=== PATIENT | female | born 1975 | race Caucasian/White ===

== ENCOUNTER → 2017-09-11 | Outpatient (CLI) | payer BC ==
[~2017-09-11] MED LIST: PRENTAB26 PO
--- NOTE | 2017-09-11 16:02 | MAMMOGRAPHY REPORT ---
BILATERAL DIGITAL DIAGNOSTIC MAMMOGRAM TOMOSYNTHESIS WITH CAD AND TARGETED BILATERAL ULTRASOUND: 08/30 CLINICAL HISTORY: 42-year-old woman presents with a history of bilateral spontaneous nipple discharge which she noticed on 09/01/2017, after running a half marathon. The discharge from the left breast is grayish in color, whitish from the right breast. Increased amount produced from the left breast, has been continuously occurring since she first noticed it. No palpable lumps, skin erythema. Famil y history of breast cancer = paternal grandmother and first cousin. TECHNIQUE: Bilateral breast tomosynthesis in addition to standard 2D mammography was performed. Curre nt study was also evaluated with a Computer Aided Detection (CAD) system. COMPARISON: No prior exams were available for comparison. BREAST COMPOSITION: There are scattered areas of fibroglandular density in both breasts. FINDINGS: No obvious masses, focal areas of distortion, asymmetries or suspicious microcalcification s are seen in the breasts. No focal skin thickening or nipple retraction. In particular, the subare olar spot magnification views fail to demonstrate any suspicious microcalcifications in the subareola r/retroareolar breasts. Targeted ultrasound was performed in the periareolar and retroareolar aspect of each breast. In the 2:00 periareolar left breast, there is a lobulated mixed anechoic and isoechoic solid and cystic mass with internal vascularity demonstrated. A tubular hypoechoic structure extends from this mass to th e nipple, suggesting it represents an intraductal mass, possibly a papilloma. It measures 7.1 x 5.1 x 11.0 mm and is indeterminate. This could represent a papilloma and may be the cause of the patient 's nipple discharge. Definitive characterization with an ultrasound-guided core needle biopsy is rec ommended. No other discrete solid or cystic mass or intraductal masses seen throughout the remainder of the lef t breast on targeted ultrasound, or throughout the right breast on targeted ultrasound. IMPRESSION: ACR BI-RADS CATEGORY 4: SUSPICIOUS, TARGETED ULTRASOUND ACR BI-RADS CATEGORY 4: SUSPICIO US 1. Ultrasound guided core biopsy is recommended for a mixed solid and cystic 11 mm mass with interna l vascularity associated with a duct in the 2:00 periareolar left breast, as this may explain the pat ient's nipple discharge. 2. No mammographic or sonographic mass, evidence of malignancy or possible cause for right breast ni pple discharge and continued clinical monitoring is recommended. These results and recommendations were discussed with the patient at the time of the exam. She tenta tively scheduled a left breast biopsy prior to leaving our department. Approximately 10% of breast cancers are not detected with mammography. A negative mammographic report should not delay biopsy if a clinically suggestive mass is present. Monse Gunter M.D. ay/:09/11/2017 09:11:23 Bi Analyst: Kasandra QUINTANILLA(Lucretia)(M), [facility] letter sent: Abnormal 4/5 BI-RADS Code: ACR BI-RADS Category 4: Suspicious Ultrasound BI-RADS: ACR BI-RADS Category 4: Suspici ous
== END | disposition home or self-care (01) ==
LOC: C.MAMM 08:01
PROVIDERS: ATTEND Obstetrics & Gynecology
DX: N64.52 Nipple discharge (principal); N63.20 Unspecified lump in the left breast, unspecified quadrant

== ENCOUNTER → 2017-09-18 | Outpatient (CLI) | payer BC ==
--- NOTE | 2017-09-18 09:59 | Discharge Instructions ---
Discharge Instructions Procedure Procedure Date: Sep 18, 2017. Reason for visit: Left Mass. Discharge Discharge Date: Sep 18, 2017. Discharge Diagnosis: post left breast ultrasound guided core biopsy 2:00 axis Instructions Activity Recommendations: Additional Limitations (see below) Return to School/Work: no limitations Recommended Home Diet: No Limitations Provider Instructions: ACTIVITY RECOMMENDATIONS: * No lifting, pushing, pulling or exercising the affected side for three days. RETURN TO SCHOOL/WORK: * You may return to work/school after the procedure, but do not perform any strenuous activities for 24 to 48 hours. MEDICATIONS: * Tylenol (two 325 mg) every four to six hours if needed for mild pain (if not allergic to Tylenol). DIET: * Resume previous diet. SPECIAL CARE INSTRUCTIONS: * Keep biopsy site dry for 24 hours. May shower after 24 hours, but do not soak (bathe) incision. * May remove Tegaderm (plastic patch) tomorrow AFTER showering. * Leave the steri-strips on for one week. Allow the steri-strips to fall off by themselves. If not off after one week, you may remove them. You may place a Bandaid crosswise over the strips, if desired. * Apply ice 10 minutes on and 10 minutes off as needed. * Wear a bra at bedtime to sleep more comfortably for 2-3 days. * Your referring physician should have the results after approximately 5 to 7 business days. * Call for unusual bleeding, fever, drainage, etc or if you have any questions call [phone] during normal business hours or after hours call Dr Gunter, . FOLLOW UP VISIT: Follow-up with Referring Physician as scheduled. Allergies Coded Allergies: Sulfa Drugs (Verified Allergy, Unknown, HIVES, 01/14/17) [facility] [place] Recommendations: Call your doctor if: * Temperature above 101 degrees * Pain not relieved by pain medicine ordered * There is increased drainage or redness from any incision * You have any unanswered questions or concerns. Your Doctors Instructions noted above were prepared by provider Monse Gunter. Patient Signature Section: Patient Instructions Signature Page Keeley Lama Patient (or Guardian) Signature/Date: I have read and understand the instructions given to me by my caregivers. Caregiver/RN/Doctor Signature/Date: The above-named patient and/or guardian has received patient instructions on this date. + Original Patient Signature Page (only) stays with chart. Please make copy for patient.
--- NOTE | 2017-09-18 14:09 | MAMMOGRAPHY REPORT ---
ULTRASOUND GUIDED BIOPSY LEFT BREAST: 09/18/2017 CLINICAL HISTORY: Indeterminate mixed solid and cystic possible intraductal 11 mm mass in the 2:00 le ft breast in the setting of spontaneous greyish left nipple discharge. Patient presents for ultrasou nd-guided core needle biopsy. COMPARISON: Comparison is made to exams dated: 09/11/2017 mammogram and 09/11/2017 ultrasound - [facility]. PATIENT CONSENT: The procedure, risks and benefits were discussed with the patient and informed conse nt was obtained both verbally and in writing. Specific risks to this procedure include: bleeding, in fection, puncture of adjacent structure, nontarget biopsy, sampling error, pain, metal allergy and me dication reaction. PROCEDURE DESCRIPTION: A time out was performed and the left breast was agreed as the site of biopsy. The skin was prepped and draped in the usual sterile fashion. The microlobulated mixed solid and cys tic mass in the 2:00 breast was chosen as the target for biopsy. Subcutaneous and intraparenchymal 1% buffered lidocaine, with and without epinephrine, was administered as local anesthesia. A skin incis ion was made. Through the incision, 3 samples were taken with a 14 gauge Achieve biopsy device. A ri bbon shaped metallic marker was placed at the biopsy site. Hemostasis was achieved after manual compr ession. The patient tolerated the procedure well and there was no immediate complication. The sample s were sent to the pathology department in an appropriately labeled container. Post procedure left CC and ML tomosynthesis images were obtained. A new ribbon-shaped biopsy marker clip and no significant hematoma is seen in the 2:00 middle to anterior left breast, at the site of t he biopsied mixed solid and cystic mass identified on ultrasound. IMPRESSION: ULTRASOUND GUIDED BIOPSY Status post ultrasound-guided core biopsy of a mixed solid and cystic, possible intraductal 11 mm mas s in the 2:00 left breast, with biopsy marker placed at the site. The patient will receive notification of the biopsy results from her referring physician. Monse Gunter M.D. ay/:09/18/2017 10:48:14 Autocad Designer: Barbara Vallejo, [facility]
--- NOTE | 2017-09-18 14:13 | MAMMOGRAPHY REPORT ---
UNILATERAL LEFT DIGITAL DIAGNOSTIC MAMMOGRAM TOMOSYNTHESIS: 09/18/2017 CLINICAL HISTORY: Status post ultrasound-guided core biopsy of a mixed solid and cystic possible intr aductal mass in the 2:00 periareolar left breast, in the clinical setting of grayish nipple discharge . Please refer to the report from left breast ultrasound guided core biopsy performed at the same time for full detail. IMPRESSION: POST PROCEDURE IMAGING FOR MARKER PLACEMENT Please refer to the report from left breast ultrasound guided core biopsy performed at the same time for full detail. Approximately 10% of breast cancers are not detected with mammography. A negative mammographic report should not delay biopsy if a clinically suggestive mass is present. Monse Gunter M.D. ay/:09/18/2017 09:58:16 Game Engineer: Barbara Vallejo, [facility] BI-RADS Code: Post Procedure Imaging For Marker Placement
== END | disposition home or self-care (01) ==
LOC: C.MAMM 09:23
PROVIDERS: ATTEND Obstetrics & Gynecology
DX: R92.8 Other abnormal and inconclusive findings on diagnostic imaging of breast (principal); N63.20 Unspecified lump in the left breast, unspecified quadrant